=== PATIENT | female | born 1945 | race Caucasian/White ===

== ENCOUNTER 2016-12-16 08:33 | Day surgery (SDC) | payer OTHER ==
[~2016-12-16] VITALS: Ht 170.2 cm; Wt 77.1 kg
[~2016-12-16 08:33] MED LIST: ATORVASTATIN CA10 MG PO; CARDIZEM CD,CA120 MG PO; CARDIZEM CD,CA180 MG PO; CO Q-10400 MG PO; DAILY VITE1 EAC1 PO; DILTIAZEM 24HR360 M1 PO; ELIQUIS5 MG PO; FLAX OIL1000 MG PO; FLECAINIDE ACET50 MG PO; HYDROCHLOROTHIA25 MG PO; LASIX20 MG PO; LEVAQUIN500 MG PO; LO-DOSE ASPIRIN81 M2 PO; LOSARTAN POTASS50 MG PO; PROAIR HFA8.5 GM IH; [UNRECOGNIZED DRUG - OTHER] MC; [UNRECOGNIZED DRUG - SUPPLY] MC
== END 2016-12-16 11:36 | disposition home or self-care (01) ==
LOC: CATH 08:33
PROC: 5A2204Z Restoration of Cardiac Rhythm, Single (ICD-10-PCS; principal; 2016-12-16)
DX: I48.0 Paroxysmal atrial fibrillation (principal); I11.0 Hypertensive heart disease with heart failure; I49.3 Ventricular premature depolarization; E78.00 Pure hypercholesterolemia, unspecified; Z79.01 Long term (current) use of anticoagulants; Z87.891 Personal history of nicotine dependence
CPT/HCPCS: 93005